=== PATIENT | female | born 1975 | race American Indian/Alaskan Native ===

== ENCOUNTER 2018-03-15 10:44 | Emergency (ER) | payer OTHER ==
[2018-03-15] MEDS ORDERED: IBUPROFEN PO ONE (11:28)
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
[2018-03-15 15:29] VITALS: BP 157/97
== END 2018-03-15 13:40 | disposition home or self-care (01) ==
LOC: EDSEX → ED 10:44
DX: S13.4XXA Sprain of ligaments of cervical spine, initial encounter (principal); S39.012A Strain of muscle, fascia and tendon of lower back, initial encounter; V89.2XXA Person injured in unspecified motor-vehicle accident, traffic, initial encounter; Y93.89 Activity, other specified; Y99.8 Other external cause status; Y92.410 Unspecified street and highway as the place of occurrence of the external cause
CPT/HCPCS: 72040; 72100; 99283